=== PATIENT | male | born 1960 | race Caucasian/White ===

== ENCOUNTER → 2017-04-15 | Outpatient (CLI) | payer OTHER ==
[~2017-04-15] MED LIST: MEDROLPACK PO; ORPH100T PO; PERCOCET 5/321 UDTAB PO
== END | disposition home or self-care (01) ==
LOC: RAD 10:55
DX: M19.011 Primary osteoarthritis, right shoulder (principal)

== ENCOUNTER 2017-09-14 07:17 | Outpatient (CLI) | payer OTHER | END 2017-09-14 07:19 | disposition home or self-care (01) | LOC: SONOGRAMA 07:17 | DX: R10.84 Generalized abdominal pain (principal) ==

== ENCOUNTER 2017-09-20 09:03 | Outpatient (CLI) | payer OTHER | END 2017-09-20 09:14 | disposition home or self-care (01) | LOC: RAD 09:03 → SONOGRAMA 09:03 → RAD 09:14 | DX: K80.10 Calculus of gallbladder with chronic cholecystitis without obstruction (principal); I10 Essential (primary) hypertension ==

== ENCOUNTER 2017-09-30 04:40 | Day surgery (SDC) | payer OTHER ==
[~2017-09-30 04:40] MED LIST changes: +AMLODIPINE BESYL5 MG PO; +ENALAPRIL MALEA10 MG PO; +TOPROL XL100 M1 PO; +[UNRECOGNIZED DRUG - OTHER] PO
== END 2017-09-30 12:10 | disposition home or self-care (01) ==
LOC: CIR.AMB 04:40
DX: K80.10 Calculus of gallbladder with chronic cholecystitis without obstruction (principal)

== ENCOUNTER 2018-10-21 09:46 | Emergency (ER) | payer OTHER ==
[~2018-10-21] VITALS: Ht 152.4 cm; Wt 93.0 kg
[2018-10-21] MEDS ORDERED: SKELAXIN800 MG PO (12:11)
[2018-10-21] MEDS ORDERED: VOLTAREN-XR100 MG PO (12:11)
== END 2018-10-21 12:41 ==
LOC: ER 09:46
DX: M62.830 Muscle spasm of back (principal)

== ENCOUNTER 2018-10-24 10:35 | Outpatient (CLI) | payer OTHER ==
[~2018-10-24 10:35] MED LIST changes: +SKELAXIN800 MG PO; +VOLTAREN-XR100 MG PO
== END 2018-10-24 10:37 | disposition home or self-care (01) ==
LOC: RAD 10:35
DX: M54.5 Low back pain (principal)

== ENCOUNTER 2019-04-26 06:20 | Outpatient (CLI) | payer OTHER | END 2019-04-26 06:34 | disposition home or self-care (01) | LOC: LAB 06:20 | DX: N40.0 Benign prostatic hyperplasia without lower urinary tract symptoms (principal); I10 Essential (primary) hypertension; E11.9 Type 2 diabetes mellitus without complications; E03.8 Other specified hypothyroidism; E78.2 Mixed hyperlipidemia ==

== ENCOUNTER 2019-07-10 17:06 | Emergency (ER) | payer OTHER ==
[~2019-07-10] VITALS: Ht 172.7 cm; Wt 95.3 kg
== END 2019-07-10 18:44 | disposition home or self-care (01) ==
LOC: ER 17:06
DX: G89.29 Other chronic pain (principal); M25.572 Pain in left ankle and joints of left foot; M72.2 Plantar fascial fibromatosis

== ENCOUNTER 2019-09-20 13:58 | Outpatient (CLI) | payer OTHER | END 2019-09-20 13:59 | disposition home or self-care (01) | LOC: SONOGRAMA 13:58 → MAMO-SONO 14:15 | PROVIDERS: ATTEND Internal Medicine Cardiovascular Disease | DX: M12.872 Other specific arthropathies, not elsewhere classified, left ankle and foot (principal) ==

== ENCOUNTER 2021-05-31 10:40 | Emergency (ER) | payer OTHER ==
[~2021-05-31] VITALS: Ht 172.7 cm; Wt 93.0 kg
== END 2021-05-31 12:44 ==
LOC: ER 10:40
DX: L03.011 Cellulitis of right finger (principal); I10 Essential (primary) hypertension; Z88.0 Allergy status to penicillin

== ENCOUNTER 2021-06-22 06:20 | Emergency (ER) | payer OTHER ==
[~2021-06-22] VITALS: Ht 172.7 cm; Wt 74.8 kg
[2021-06-22] MEDS ORDERED: KETO10TA2 PO (07:40)
[2021-06-22] MEDS ORDERED: NORFLEX100MG PO (07:40)
== END 2021-06-22 07:48 | disposition home or self-care (01) ==
LOC: ER 06:20
DX: M54.2 Cervicalgia (principal)

== ENCOUNTER 2021-10-12 12:10 | Emergency (ER) | payer OTHER ==
[~2021-10-12] VITALS: Ht 172.7 cm; Wt 93.0 kg
[~2021-10-12 12:10] MED LIST changes: +KETO10TA2 PO; +NORFLEX100MG PO
[2021-10-12] MEDS ORDERED: FINASTERIDE5 MG PO (13:18)
[2021-10-12] MEDS ORDERED: TAMS0.4C PO (13:19)
== END 2021-10-12 16:44 | disposition home or self-care (01) ==
LOC: ER 12:10
DX: J15.7 Pneumonia due to Mycoplasma pneumoniae (principal); J32.9 Chronic sinusitis, unspecified

== ENCOUNTER 2022-12-02 15:43 | Emergency (ER) | payer OTHER ==
[~2022-12-02] VITALS: Ht 172.7 cm; Wt 89.4 kg
[~2022-12-02 15:43] MED LIST changes: +FINASTERIDE5 MG PO; +NABUMETONE750 MG PO; +TAMS0.4C PO
[2022-12-02] MEDS ORDERED: GABAPENTIN800 MG (15:50)
== END 2022-12-02 17:53 | disposition home or self-care (01) ==
LOC: ER 15:44
DX: M54.89 Other dorsalgia (principal); I10 Essential (primary) hypertension; Z88.0 Allergy status to penicillin

== ENCOUNTER 2023-11-01 13:05 | Outpatient (CLI) | payer OTHER ==
[~2023-11-01 13:05] MED LIST changes: +GABAPENTIN800 MG
== END 2023-11-01 13:14 | disposition home or self-care (01) ==
LOC: SONOGRAMA 13:05
PROVIDERS: ATTEND Psychiatry & Neurology Psychiatry
DX: R22.2 Localized swelling, mass and lump, trunk (principal)

== ENCOUNTER 2023-11-05 13:45 | Outpatient (CLI) | payer OTHER | END 2023-11-05 14:00 | disposition home or self-care (01) | LOC: SONOGRAMA 13:45 | PROVIDERS: ATTEND Specialist | DX: N62 Hypertrophy of breast (principal) ==

== ENCOUNTER 2023-11-11 13:54 | Outpatient (CLI) | payer OTHER | END 2023-11-12 10:52 | disposition home or self-care (01) | LOC: MAMO-SONO 13:54 | PROVIDERS: ATTEND Specialist | DX: N62 Hypertrophy of breast (principal) ==

== ENCOUNTER 2023-12-11 04:46 | Emergency (ER) | payer OTHER ==
[~2023-12-11] VITALS: Ht 172.7 cm; Wt 90.7 kg
[2023-12-11] MEDS ORDERED: SPIRONOLACTONE25 MG PO (05:11)
[2023-12-14] MEDS ORDERED: AZOR 10-20 MG1 EACH PO (09:06)
== END 2023-12-11 06:09 | disposition home or self-care (01) ==
LOC: ER 04:48
DX: H26.9 Unspecified cataract (principal)

== ENCOUNTER 2023-12-21 05:50 | Day surgery (SDC) | payer OTHER ==
[2023-12-14 09:07] VITALS: BP 130/73
[2023-12-14 09:42] LABS: HEMATOCRIT 44.6 % (39.0-48.0); HEMOGLOBIN 15.2 g/dL (13-16.00); MEAN CELL VOLUME 86.9 fL (80.0-100.00); MEAN CORPUSCULAR HEMOGLOBIN 29.5 pg (27.00-32.0); PLATELET COUNT 373 K/uL (150-450); RED BLOOD COUNT 5.14 M/uL (4.00-6.00); RED CELL DISTRIBUTION WIDTH 13.6 % (11.5-14.5)
[2023-12-14 09:46] LABS: PH,URINE 5.5 (5.0-8.0); URINE APPEARANCE Clear; URINE BILIRRUBIN Negative (NEGATIVE); URINE BLOOD Negative; URINE COLOR Yellow; URINE GLUCOSE Negative (NEGATIVE); URINE KETONE Negative (NEGATIVE); URINE LEUKOCYTE Negative; URINE NITRATE Negative; URINE PROTEIN Negative (NEGATIVE); URINE UROBILINOGEN 0.2 E.U./dl
[2023-12-14 09:50] LABS: URINE RBC 3.3 uL (0.0-20.8); URINE WBC 3.8 uL (0.0-23.2)
[2023-12-14 09:59] LABS: URINE EPITHELIAL CELLS 0.9 uL (0.0-38.8)
[2023-12-14 10:22] LABS: INR 1.03; PARTIAL THROMBOPLASTIN TIME 29.2 SECONDS (22.0-34.0); PROTHROMBIN TIME 11.2 SECONDS (9.0-11.5)
[2023-12-14 10:39] LABS: BILIRUBIN TOTAL 0.7 mg/dL (0.3-1.2); CALCIUM 9.6 mg/dL (8.5-10.1); CREATININE SERUM 0.68 mg/dL (0.70-1.30); GFR 118.55; GLOBULINA 3.9 G/DL (2.4-3.5); POTASSIUM 4.77 mEq/L (3.5-5.1); TOTAL PROTEIN 7.9 gm/dL (6.4-8.2)
[~2023-12-21] VITALS: Ht 172.7 cm; Wt 90.7 kg
[~2023-12-21 05:50] MED LIST changes: +AZOR 10-20 MG1 EACH PO; +SPIRONOLACTONE25 MG PO
[2023-12-21] MEDS ORDERED: CIPROFLOXACIN IN 5 % DEXTROSE 400 MG/200 ML PIGGYBAG IV ONE (09:00)
[2023-12-21] MEDS ORDERED: CHLORHEXIDINE GLUCONATE 120 ML BOTTLE TOP ONE (09:00)
[2023-12-21] MEDS ORDERED: CEFAZOLIN SODIUM 1,000 MG VIAL IV SCH (09:30)
[2023-12-21] MEDS ORDERED: FAMOTIDINE/PF 20 MG/10 ML SYRINGE IV SCH ×2 (09:30)
[2023-12-21] MEDS ORDERED: RINGERS SOLUTION,LACTATED 1,000 ML IV SCH (09:30)
[2023-12-21] MEDS ORDERED: MORPHINE SULFATE 4 MG/ML VIAL IV ONE (09:45)
== END 2023-12-21 13:20 | disposition home or self-care (01) ==
LOC: CIR.AMB 05:50
PROVIDERS: ATTEND Specialist
DX: N62 Hypertrophy of breast (principal); I10 Essential (primary) hypertension

== ENCOUNTER 2024-01-03 13:04 | Outpatient (CLI) | payer OTHER | END 2024-01-03 13:11 | disposition home or self-care (01) | LOC: SONOGRAMA 13:04 | PROVIDERS: ATTEND Specialist | DX: D17.1 Benign lipomatous neoplasm of skin and subcutaneous tissue of trunk (principal) ==

== ENCOUNTER → 2024-06-03 07:41 | Outpatient (CLI) | payer OTHER ==
[2024-06-03 09:30] LABS: HEMATOCRIT 43.7 % (39.0-48.0); HEMOGLOBIN 14.9 g/dL (13-16.00); MEAN CELL VOLUME 86.4 fL (80.0-100.00); MEAN CORPUSCULAR HEMOGLOBIN 29.4 pg (27.00-32.0); MEAN CORPUSCULAR HGB CONC 34.1 g/dl (32.0-36.0); PLATELET COUNT 410 K/uL (150-450); RED BLOOD COUNT 5.06 M/uL (4.00-6.00); RED CELL DISTRIBUTION WIDTH 13.4 % (11.5-14.5)
[2024-06-03 09:31] LABS: PH,URINE 5.5 (5.0-8.0); URINE APPEARANCE Clear; URINE BILIRRUBIN Negative (NEGATIVE); URINE BLOOD Negative; URINE COLOR Yellow; URINE GLUCOSE Negative (NEGATIVE); URINE KETONE Negative (NEGATIVE); URINE LEUKOCYTE Negative; URINE NITRATE Negative; URINE PROTEIN Negative (NEGATIVE)
[2024-06-03 09:36] LABS: URINE BACTERIA 6.1 uL (0.0-1933); URINE EPITHELIAL CELLS 5.2 uL (0.0-38.8); URINE RBC 5.8 uL (0.0-20.8)
[2024-06-03 10:06] LABS: BILIRUBIN TOTAL 0.79 mg/dL (0.3-1.2); CALCIUM 9.8 mg/dL (8.5-10.1); CREATININE SERUM 0.8 mg/dL (0.70-1.30); GFR 98.27; GLOBULINA 3.8 G/DL (2.4-3.5); POTASSIUM 3.86 mEq/L (3.5-5.1); TOTAL PROTEIN 7.8 gm/dL (6.4-8.2)
[2024-06-03 10:12] LABS: URINE CAST 0.14 uL (0.0-1.40)
[2024-06-03 10:26] LABS: CHOL HDL RATIO 3.9 (0-5.0); PROSTATIC SPECIFIC ANTIGEN 2.59 NG/ML (0.010-4.00); T4 TOTAL 9.88 UG/DL (4.5-12.1); TSH 0.517 uIU/mL (0.358-3.74)
[2024-06-05 11:59] LABS: T3 TOTAL 1.07 ng/ml (0.846-2.02); VITAMIN D3 25 HYDROXY 50.13 ng/ml (30-120)
== END | disposition home or self-care (01) ==
LOC: LAB 07:41
PROVIDERS: ATTEND Internal Medicine Cardiovascular Disease
DX: I10 Essential (primary) hypertension (principal); E11.9 Type 2 diabetes mellitus without complications; E03.9 Hypothyroidism, unspecified; E78.2 Mixed hyperlipidemia; D64.0 Hereditary sideroblastic anemia; Z12.11 Encounter for screening for malignant neoplasm of colon; N40.0 Benign prostatic hyperplasia without lower urinary tract symptoms; E55.9 Vitamin D deficiency, unspecified; M81.0 Age-related osteoporosis without current pathological fracture